=== PATIENT | female | born 1945 | race Caucasian/White ===

== ENCOUNTER 2021-04-29 18:08 | Inpatient (IN) | payer MEDICARE, OTHER ==
[2021-04-29] MEDS ORDERED: FUROSEMIDE 10 MG/ML 4 ML VIAL IV STA (19:02)
--- NOTE | 2021-04-29 19:06 | ED ---
General Adult HPI - General Chief complaint: Extremity Problem,Nontraumatic Stated complaint: Swollen legs Time Seen by Provider: 04/29/21 19:00 Source: patient, RN notes reviewed, old records reviewed Mode of arrival: EMS Limitations: no limitations - History of Present Illness Initial comments: 75-year-old female alert and oriented 4, presents to the emergency room with complaints of bilateral lower extremity swelling for the past month. She states that she does takes Lasix twice a day but has had increased swelling. She denies any difficulty breathing or chest pain. Oxygen saturations 93% on room air. She is a daily smoker. She states that she sees a clinic doctor in [place] for primary care. -: month(s) (1) Location: left, right, lower extremity Radiation: non-radiation Severity scale (1-10): 8 Quality: aching Consistency: constant Improves with: none Worsens with: none Associated Symptoms: denies other symptoms Treatments Prior to Arrival: none - Related Data Home Medications Medication Instructions Recorded Confirmed Carvedilol [Coreg] 12.5 mg PO BID 04/29/21 04/29/21 Furosemide [Lasix] 20 mg PO BID 04/29/21 04/29/21 Nitroglycerin Sl Tabs [Nitrostat] 0.4 mg SUBLINGUAL Q5M PRN 04/29/21 04/29/21 Sacubitril/Valsartan [Entresto 97 1 tab PO BID 04/29/21 04/29/21 mg-103 mg Tablet] Allergies Allergy/AdvReac Type Severity Reaction Status Date / Time Penicillins Allergy Unknown Verified 04/29/21 20:47 Review of Systems ROS Statement: Those systems with pertinent positive or pertinent negative responses have been documented in the HPI. ROS Other: All systems not noted in ROS Statement are negative. Past Medical History Past Medical History: Atrial Fibrillation, Coronary Artery Disease (CAD), Heart Failure, COPD, Myocardial Infarction ([place]) History of Any Multi-Drug Resistant Organisms: None Reported Past Surgical History: Section, Heart Catheterization With Stent Past Psychological History: No Psychological Hx Reported Smoking Status: Current every day smoker Past Alcohol Use History: None Reported Past Drug Use History: None Reported General Exam Limitations: no limitations General appearance: alert, in no apparent distress ENT exam: Present: normal exam, normal oropharynx, mucous membranes dry Neck exam: Present: normal inspection, full ROM. Absent: tenderness, meningismus, lymphadenopathy Respiratory exam: Present: wheezes (Expiratory bilaterally). Absent: rhonchi, s tridor, chest wall tenderness, accessory muscle use Cardiovascular Exam: Present: regular rate, normal heart sounds GI/Abdominal exam: Present: soft. Absent: distended, tenderness Extremities exam: Present: normal capillary refill, pedal edema Neurological exam: Present: alert, oriented X3 Psychiatric exam: Present: normal affect, normal mood Skin exam: Present: warm, dry, intact, normal color. Absent: cyanosis, diaphoretic, pallor Course Vital Signs 04/29/21 04/29/21 04/29/21 18:12 20:33 22:07 Temperature 98.8 F Pulse Rate 81 82 77 Respiratory 20 20 20 Rate Blood Pressure 114/66 125/77 122/68 O2 Sat by Pulse 93 L 95 97 Oximetry EKG Findings - EKG Results: EKG: sinus rhythm (Ventricular rate of 83, SD interval 0.180, QRS 0.160, QTC 0.465; right bundle-branch block, no old EKG to compare) Medical Decision Making - Medical Decision Making 75-year-old female presents to the emergency room with complaints of bilateral lower extremity swelling for the past month. She states that she does takes Lasix twice a day but has had increased swelling. She denies any difficulty breathing or chest pain. Chest x-ray shows findings consistent with interstitial pulmonary edema. There is no clinical suspicion for pneumonia. There is no evidence of leukocytosis. Coronavirus swab is negative. Troponin is negative at 0.012. Her pro-BNP is 14,800. She was given IV Lasix in the emergency room and she will be admitted to the hospital for CHF exacerbation. Patient is agreeable to this plan of care. Case was discussed with Dr. Quiroz. - Lab Data Result diagrams: 04/29/21 20:00 04/29/21 20:01 Lab Results 04/29/21 04/29/21 04/29/21 Range/Units 20:00 20:01 20:01 WBC 4.2 (3.8-10.6) k/uL RBC 4.40 (3.80-5.40) m/uL Hgb 12.9 (11.4-16.0) gm/dL Hct 41.6 (34.0-46.0) % MCV 94.5 (80.0-100.0) fL MCH 29.4 (25.0-35.0) pg MCHC 31.1 (31.0-37.0) g/dL RDW 15.9 H (11.5-15.5) % Plt Count 146 L (150-450) k/uL MPV 7.1 Neutrophils % 61 % Lymphocytes % 30 % Monocytes % 6 % Eosinophils % 1 % Basophils % 1 % Neutrophils # 2.6 (1.3-7.7) k/uL Lymphocytes # 1.2 (1.0-4.8) k/uL Monocytes # 0.3 (0-1.0) k/uL Eosinophils # 0.1 (0-0.7) k/uL Basophils # 0.0 (0-0.2) k/uL Hypochromasia Slight PT 12.2 H (9.0-12.0) sec INR 1.2 H (<1.2) APTT 25.0 (22.0-30.0) sec Sodium 133 L (137-145) mmol/L Potassium 4.5 (3.5-5.1) mmol/L Chloride 100 (98-107) mmol/L Carbon Dioxide 27 (22-30) mmol/L Anion Gap 6 mmol/L BUN 19 H (7-17) mg/dL Creatinine 0.65 (0.52-1.04) mg/dL Est GFR (CKD-EPI)AfAm >90 (>60 ml/min/1.73 sqM) Est GFR (CKD-EPI)NonAf 87 (>60 ml/min/1.73 sqM) Glucose 92 (74-99) mg/dL Calcium 8.7 (8.4-10.2) mg/dL Magnesium 2.1 (1.6-2.3) mg/dL Total Bilirubin 0.9 (0.2-1.3) mg/dL AST 32 (14-36) U/L ALT 19 (4-34) U/L Alkaline Phosphatase 51 (38-126) U/L Troponin I (0.000-0.034) ng/mL NT-Pro-B Natriuret Pep pg/mL Total Protein 6.5 (6.3-8.2) g/dL Albumin 3.4 L (3.5-5.0) g/dL 04/29/21 04/29/21 Range/Units 20:01 20:01 WBC (3.8-10.6) k/uL RBC (3.80-5.40) m/uL Hgb (11.4-16.0) gm/dL Hct (34.0-46.0) % MCV (80.0-100.0) fL MCH (25.0-35.0) pg MCHC (31.0-37.0) g/dL RDW (11.5-15.5) % Plt Count (150-450) k/uL MPV Neutrophils % % Lymphocytes % % Monocytes % % Eosinophils % % Basophils % % Neutrophils # (1.3-7.7) k/uL Lymphocytes # (1.0-4.8) k/uL Monocytes # (0-1.0) k/uL Eosinophils # (0-0.7) k/uL Basophils # (0-0.2) k/uL Hypochromasia PT (9.0-12.0) sec INR (<1.2) APTT (22.0-30.0) sec Sodium (137-145) mmol/L Potassium (3.5-5.1) mmol/L Chloride (98-107) mmol/L Carbon Dioxide (22-30) mmol/L Anion Gap mmol/L BUN (7-17) mg/dL Creatinine (0.52-1.04) mg/dL Est GFR (CKD-EPI)AfAm (>60 ml/min/1.73 sqM) Est GFR (CKD-EPI)NonAf (>60 ml/min/1.73 sqM) Glucose (74-99) mg/dL Calcium (8.4-10.2) mg/dL Magnesium (1.6-2.3) mg/dL Total Bilirubin (0.2-1.3) mg/dL AST (14-36) U/L ALT (4-34) U/L Alkaline Phosphatase (38-126) U/L Troponin I <0.012 (0.000-0.034) ng/mL NT-Pro-B Natriuret Pep 36935 pg/mL Total Protein (6.3-8.2) g/dL Albumin (3.5-5.0) g/dL Disposition Clinical Impression: CHF (congestive heart failure) Disposition: ADMITTED IP TO THIS HOSP Decision Date: 04/29/21 Decision Time: 21:26
--- NOTE | 2021-04-29 20:17 | XR ---
EXAMINATION: XR chest 2V DATE AND TIME: 04/29/2021 8:11 PM CLINICAL INDICATION: PHH; difficulty breathing TECHNIQUE: Departmental protocol COMPARISON: None FINDINGS: The lungs demonstrate marked silhouetting of the pulmonary vasculature bilaterally throughout the upp er and mid and lower lung zones. This is due to a fine reticular pattern of increased attenuation in addition to pulmonary venous engorgement. The pattern is consistent with advanced interstitial phase pulmonary edema. This presumptive diagnosis presumes there is no clinical suspicion for pneumonia. The pleural spaces are negative. The cardiac silhouette is markedly enlarged. The remainder of the mediastinal silhouette is unremarka ble. The skeletal structures and soft tissues are negative for acute findings. IMPRESSION: Radiographic findings consistent with marked interstitial phase cardiogenic pulmonary edema.
[2021-04-29 20:23] LABS: Basophils % (A) 1 %; Eosinophils # (A) 0.1 k/uL (0-0.7); Eosinophils % (A) 1 %; HCT 41.6 % (34.0-46.0); HGB 12.9 gm/dL (11.4-16.0); Hypochromasia Slight; Lymphocytes # (A) 1.2 k/uL (1.0-4.8); Lymphocytes % (A) 30 %; MCH 29.4 pg (25.0-35.0); MCHC 31.1 g/dL (31.0-37.0); MCV 94.5 fL (80.0-100.0); Mean Platelet Volume 7.1; Monocytes # (A) 0.3 k/uL (0-1.0); Monocytes % (A) 6 %; Neutrophils # (A) 2.6 k/uL (1.3-7.7); Neutrophils % (A) 61 %; Platelet Count 146 k/uL (150-450); RDW 15.9 % (11.5-15.5); WBC 4.2 k/uL (3.8-10.6)
[2021-04-29 20:36] LABS: ALT 19 U/L (4-34); AST 32 U/L (14-36); African American GFR (CKD) >90 (>60 ml/min/1.73 sqM); Albumin 3.4 g/dL (3.5-5.0); Alkaline Phosphatase 51 U/L (38-126); Anion Gap 6 mmol/L; Blood Urea Nitrogen 19 mg/dL (7-17); Calcium 8.7 mg/dL (8.4-10.2); Carbon Dioxide 27 mmol/L (22-30); Chloride 100 mmol/L (98-107); Glucose 92 mg/dL (74-99); Magnesium 2.1 mg/dL (1.6-2.3); Non-African American GFR(CKD) 87 (>60 ml/min/1.73 sqM); Sodium 133 mmol/L (137-145); Total Bilirubin 0.9 mg/dL (0.2-1.3); Total Protein 6.5 g/dL (6.3-8.2)
[2021-04-29 20:39] LABS: Potassium 4.5 mmol/L (3.5-5.1)
[2021-04-29 20:47] LABS: INR 1.2 (<1.2); Prothrombin Time 12.2 sec (9.0-12.0)
[2021-04-29] MEDS ORDERED: ACETAMINOPHEN TAB 325 MG TAB PO PRN (21:27)
[2021-04-29] MEDS ORDERED: NALOXONE 0.4 MG/ML 1 ML VIAL IV PRN (21:27)
[2021-04-29] MEDS ORDERED: IBUPROFEN 400 MG TAB PO PRN (21:27)
[2021-04-29] MEDS ORDERED: NITROGLYCERIN SL TABS 0.4 MG TAB SUBLINGUAL PRN (21:29)
--- NOTE | 2021-04-30 02:07 | P.HPIM ---
History of Present Illness H&P Date: 04/29/21 The patient is a 75-year-old female with an extensive PMH including COPD, CHF, coronary artery disease status post stenting, A. fib (not on anticoagulation, unknown reason) who presents to the emergency room with complaints of bilateral lower extremity swelling. The patient reports that she was admitted to [facility] in [place] last month for 1 week and was treated for cardiac issues but states that she continues to have lower extremity edema. The patient does not recall her home medications and states she takes whenever she is prescribed. She lives with her son. She reports bilateral lower extremity discomfort due to significant edema. Reports sleeping in a recliner over the past few days and somewhat decreased exercise tolerance. Denied fever, chills, cough, nausea, vomiting, abdominal pain, diarrhea. Laboratory evaluation was remarkable for sodium of 133, and platelet count 146. Chest x-ray was consistent with edema. EKG showing normal sinus rhythm at 83 bpm with right bundle branch block. Review of systems: Pertinent positives and negatives as discussed in HPI, a complete review of systems was performed and all other systems are negative. Physical examination: General: non toxic, no distress, appears at stated age, normal weight Derm: no unusual rashes/lesions no unusual ecchymoses, warm, dry Head: atraumatic, normocephalic, symmetric Eyes: EOMI, no lid lag, anicteric sclera, pupils equal round reactive to light ENT: Nose and ears atraumatic, no thrush, no pharyngeal erythema Neck: No thyromegaly, no cervical lymphadenopathy, trachea midline, supple Mouth: no lip lesion, mucus membranes moist Cardiovascular: S1S2 reg, no murmur, positive posterior tibial pulse bilateral, 3+ bilateral lower extremity pitting edema with chronic venous stasis changes, capillary refill less than 2 seconds Lungs: Mild bibasilar rales, no accessory muscle use Abdominal: soft, nontender to palpation, no guarding, no appreciable organomegaly, normal bowel sounds Ext: no gross muscle atrophy, muscle strength 5 out of 5 in all 4 extremities grossly, no contractures, Neuro: CN II-XI grossly intact, light touch intact all 4 extremities, finger to nose within normal limits, Psych: Alert, oriented, appropriate affect Assessment/plan Acute CHF exacerbation -Obtain echocardiogram -Continue with Lasix -Cardiac monitoring -Monitor electrolytes -Cardiac monitoring -Intake and output, daily weights Chronic conditions: A. fib, COPD, coronary artery disease -Unclear why the patient is not on anticoagulation -Continue with home medications -Obtain records from [facility] and consider starting anticoagulation if no contra indications noted DVT prophylaxis -Heparin subcu The patient is admitted with an anticipated less than 2 midnight stay for ev aluation of CHF CODE STATUS: Full Code Discussed with: Patient Anticipated discharge date: 2-[address]: Home Past Medical History Past Medical History: Atrial Fibrillation, Coronary Artery Disease (CAD), Heart Failure, COPD, Myocardial Infarction ([place]) Last Myocardial Infarction Date:: unknown date per pt. History of Any Multi-Drug Resistant Organisms: None Reported Past Surgical History: Section, Heart Catheterization With Stent Past Anesthesia/Blood Transfusion Reactions: No Reported Reaction Date of Last Stent Placement:: unknwn date per pt Past Psychological History: No Psychological Hx Reported Smoking Status: Current every day smoker Past Alcohol Use History: None Reported Additional Past Alcohol Use History / Comment(s): 62 years of smoking Past Drug Use History: None Reported Medications and Allergies Home Medications Medication Instructions Recorded Confirmed Type Carvedilol [Coreg] 12.5 mg PO BID 04/29/21 04/29/21 History Furosemide [Lasix] 20 mg PO BID 04/29/21 04/29/21 History Nitroglycerin Sl Tabs [Nitrostat] 0.4 mg SUBLINGUAL Q5M PRN 04/29/21 04/29/21 History Sacubitril/Valsartan [Entresto 97 1 tab PO BID 04/29/21 04/29/21 History mg-103 mg Tablet] Allergies Allergy/AdvReac Type Severity Reaction Status Date / Time Penicillins Allergy Unknown Verified 04/29/21 20:47 Physical Exam Vitals: Vital Signs Temp Pulse Pulse Resp BP BP Pulse Ox 04/29/21 23:17 85 04/29/21 22:40 97.5 F L 85 17 128/82 100 04/29/21 22:07 77 20 122/68 97 04/29/21 20:33 82 20 125/77 95 04/29/21 18:12 98.8 F 81 20 114/66 93 L Intake and Output 04/29/21 04/29/21 04/30/21 14:59 22:59 06:59 Other: # Voids 1 Weight 57.606 kg Results CBC & Chem 7: 04/29/21 20:00 04/29/21 20:01 Labs: Abnormal Lab Results - Last 24 Hours (Table) 04/29/21 04/29/21 04/29/21 Range/Units 20:00 20:01 20:01 RDW 15.9 H (11.5-15.5) % Plt Count 146 L (150-450) k/uL PT 12.2 H (9.0-12.0) sec INR 1.2 H (<1.2) Sodium 133 L (137-145) mmol/L BUN 19 H (7-17) mg/dL Albumin 3.4 L (3.5-5.0) g/dL Thrombosis Risk Factor Assmnt - Choose All That Apply Any of the Below Risk Factors Present?: Yes Each Factor Represents 1 point: Abnormal pulmonary function (COPD), Swollen legs (current) Other Risk Factors: Yes Each Risk Factor Represents 3 Points: Age 75 years or older Thrombosis Risk Factor Assessment Total Risk Factor Score: 5 Thrombosis Risk Factor Assessment Level: High Risk
[2021-04-30] MEDS: HEPARIN SODIUM,PORCINE/PF 5,000 UNIT/0.5 ML SYRINGE SQ SCH ×3 (07:29→23:28)
[2021-04-30] MEDS: carvediloL 12.5 MG TAB PO SCH ×2 (07:30→19:46)
[2021-04-30] MEDS: FUROSEMIDE 10 MG/ML 4 ML VIAL IV SCH ×2 (07:30→19:46)
[2021-04-30 07:42] LABS: African American GFR (CKD) 83 (>60 ml/min/1.73 sqM); Anion Gap 3 mmol/L; Blood Urea Nitrogen 18 mg/dL (7-17); Calcium 8.3 mg/dL (8.4-10.2); Carbon Dioxide 30 mmol/L (22-30); Chloride 103 mmol/L (98-107); Glucose 98 mg/dL (74-99); Magnesium 2.1 mg/dL (1.6-2.3); Non-African American GFR(CKD) 72 (>60 ml/min/1.73 sqM); Potassium 3.9 mmol/L (3.5-5.1); Sodium 136 mmol/L (137-145)
[2021-04-30] MEDS ORDERED: FUROSEMIDE 20 MG TAB PO SCH (09:00)
[2021-04-30 09:05] LABS: HCT 38.9 % (37.2-46.3); HGB 12.1 g/dL (12.0-15.0); MCH 28.7 pg (27.0-32.0); MCHC 31.1 g/dL (32.0-37.0); MCV 92.4 fL (80.0-97.0); Mean Platelet Volume 9.1 fL (9.5-12.2); Platelet Count 128 X 10*3/uL (140-440); RBC 4.21 X 10*6/uL (4.10-5.20); RDW 16.4 % (11.5-14.5); WBC 4.18 X 10*3/uL (4.50-10.00)
[2021-04-30] MEDS: SACUBITRIL/VALSARTAN 97 MG-103 MG TABLET PO SCH ×2 (09:35→19:46)
--- NOTE | 2021-04-30 09:39 | P.PN ---
Subjective Progress Note Date: 04/30/21 Physical examination: General: non toxic, no distress, appears at stated age, normal weight Derm: no unusual rashes/lesions no unusual ecchymoses, warm, dry Head: atraumatic, normocephalic, symmetric Eyes: EOMI, no lid lag, anicteric sclera, pupils equal round reactive to light ENT: Nose and ears atraumatic, no thrush, no pharyngeal erythema Neck: No thyromegaly, no cervical lymphadenopathy, trachea midline, supple Mouth: no lip lesion, mucus membranes moist Cardiovascular: S1S2 reg, no murmur, positive posterior tibial pulse bilateral, 3+ bilateral lower extremity pitting edema with chronic venous stasis changes, capillary refill less than 2 seconds Lungs: Mild bibasilar rales, no accessory muscle use Abdominal: soft, nontender to palpation, no guarding, no appreciable organomegaly, normal bowel sounds Ext: no gross muscle atrophy, muscle strength 5 out of 5 in all 4 extremities grossly, no contractures, Neuro: CN II-XI grossly intact, light touch intact all 4 extremities, finger to nose within normal limits, Psych: Alert, oriented, appropriate affect Patient is still short of breath still have swelling in the lower extremities no chest pain Assessment/plan Acute CHF exacerbation -Obtain echocardiogram -Continue with Lasix -Cardiac monitoring -Monitor electrolytes -Cardiac monitoring -Intake and output, daily weights Chronic conditions: A. fib, COPD, coronary artery disease -Unclear why the patient is not on anticoagulation -Continue with home medications -Obtain records from [facility] and consider starting anticoagulation if no contra indications noted CHF exacerbation continue patient on IV Lasix COPD extermination start the patient on IV steroids and monitor DVT prophylaxis Objective - Vital Signs Vital signs: Vital Signs Temp 99.5 F 04/30/21 07:00 Pulse 73 04/30/21 08:00 Resp 17 04/30/21 08:00 BP 126/79 04/30/21 07:00 Pulse Ox 96 04/30/21 07:00 Intake & Output 04/29/21 04/30/21 04/30/21 18:59 06:59 18:59 Intake Total 118 Output Total 100 300 Balance -100 -182 Weight 57.606 kg 60.1 kg Intake: Oral 118 Output: Urine 100 300 Other: Voiding Method Toilet # Voids 1 - Labs CBC & Chem 7: 04/30/21 06:58 04/30/21 06:58 Labs: Abnormal Lab Results - Last 24 Hours (Table) 04/29/21 04/29/21 04/29/21 Range/Units 20:00 20:01 20:01 WBC (4.50-10.00) X 10*3/uL MCHC (32.0-37.0) g/dL RDW 15.9 H (11.5-15.5) % Plt Count 146 L (150-450) k/uL MPV (9.5-12.2) fL PT 12.2 H (9.0-12.0) sec INR 1.2 H (<1.2) Sodium 133 L (137-145) mmol/L BUN 19 H (7-17) mg/dL Calcium (8.4-10.2) mg/dL Albumin 3.4 L (3.5-5.0) g/dL 04/30/21 04/30/21 Range/Units 06:58 06:58 WBC 4.18 L (4.50-10.00) X 10*3/uL MCHC 31.1 L (32.0-37.0) g/dL RDW 16.4 H (11.5-15.5) % Plt Count 128 L (150-450) k/uL MPV 9.1 L (9.5-12.2) fL PT (9.0-12.0) sec INR (<1.2) Sodium 136 L (137-145) mmol/L BUN 18 H (7-17) mg/dL Calcium 8.3 L (8.4-10.2) mg/dL Albumin (3.5-5.0) g/dL
--- NOTE | 2021-04-30 11:44 | ECHOF ---
Referral Reason:CHF MEASUREMENTS -------- HEIGHT: 152.4 cm WEIGHT: 57.6 kg BP: IVSd: 1.1 cm (0.6 - 1.1) LVIDd: 6.0 cm (3.9 - 5.3) LVPWd: 1.1 cm (0.6 - 1.1) EDV(Teich): 178 ml IVSs: 1.4 cm LVIDs: 4.0 cm LVPWs: 1.7 cm %IVS Thck: 29 % ESV(Teich): 69 ml EF(Teich): 61 % %FS: 34 % SV(Teich): 109 ml LA Diam: 4.7 cm (2.7 - 3.8) RVIDd: 4.1 cm (< 3.3) RA Diam: 4.7 cm LALs A4C: 5.7 cm LAAs A4C: 22.9 cm LAESV A-L A4C: 78 ml LAESV MOD A4C: 75 ml LALs A2C: 5.9 cm LAAs A2C: 25.4 cm LAESV A-L A2C: 93 ml LAESV MOD A2C: 88 ml LAESV(A-L): 87 ml LAESV Index (A-L): 56.43 ml/m Ao Diam: 2.5 cm (2.0 - 3.7) LA Diam: 6.1 cm (2.7 - 3.8) AV Cusp: 1.6 cm (1.5 - 2.6) EPSS: 2.0 cm MV E Dyllan: 0.93 m/s MV DecT: 243 ms MV Dec Meagher: 3.8 m/s MV A Dyllan: 0.80 m/s MV E/A Ratio: 1.17 MV PHT: 70 ms MV Vmax: 1.66 m/s MV Vmean: 0.73 m/s MV maxP.02 mmHg MV meanP.71 mmHg MV VTI: 32.2 cm TR Vmax: 3.54 m/s TR maxP.14 mmHg RAP: 15.00 mmHg RVSP: 65.14 mmHg MV EF SLOPE: 41.47 mm/s (70 - 150) MV EXCURSION: 13.54 mm (> 18.000) FINDINGS -------- Sinus rhythm. This was a technically good study. The left ventricular size is normal. Left ventricular wall thickness is normal. Overall left vent ricular systolic function is severely impaired with, an EF between 20 - 25 %. The right ventricle is severely enlarged. The right ventricular septal wall is flattened in diastol e and systole which is consistent with right ventricular volume and pressure overload. LA is severely dilated >40 ml/m2 The right atrial size is normal. There is mild aortic valve sclerosis. There is no evidence of aortic regurgitation. The mitral valve leaflets are mildly thickened. Mild mitral annular calcification present. Modera te mitral regurgitation is present. Severe tricuspid regurgitation present. There is moderate to severe pulmonary hypertension. The r ight ventricular systolic pressure, as measured by Doppler, is 65.14mmHg. Trace/mild (physiologic) pulmonic regurgitation. There is no pericardial effusion. CONCLUSIONS -------- 1. The left ventricular size is normal. 2. Left ventricular wall thickness is normal. 3. Overall left ventricular systolic function is severely impaired with, an EF between 20 - 25 %. 4. The right ventricle is severely enlarged. 5. The right ventricular septal wall is flattened in diastole and systole which is consistent with r ight ventricular volume and pressure overload. 6. LA is severely dilated >40 ml/m2 7. The right atrial size is normal. 8. There is mild aortic valve sclerosis. 9. The mitral valve leaflets are mildly thickened. 10. Mild mitral annular calcification present. 11. Moderate mitral regurgitation is present. 12. Severe tricuspid regurgitation present. 13. There is moderate to severe pulmonary hypertension. 14. The right ventricular systolic pressure, as measured by Doppler, is 65.14mmHg. 15. Trace/mild (physiologic) pulmonic regurgitation. 16. There is no pericardial effusion. OCCUPATIONAL THERAPY AIDE: Meliza Arias RDCS
[2021-04-30] MEDS: methylPREDNISolone SOD SUCCI 40 MG/ML 1 ML VIAL IV SCH ×3 (15:31→23:27)
[2021-05-01] MEDS: methylPREDNISolone SOD SUCCI 40 MG/ML 1 ML VIAL IV SCH ×3 (08:20→19:51)
[2021-05-01] MEDS: HEPARIN SODIUM,PORCINE/PF 5,000 UNIT/0.5 ML SYRINGE SQ SCH ×3 (08:23→19:50)
[2021-05-01] MEDS: FUROSEMIDE 10 MG/ML 4 ML VIAL IV SCH ×2 (08:23→19:50)
[2021-05-01] MEDS: carvediloL 12.5 MG TAB PO SCH ×2 (08:23→19:50)
[2021-05-01] MEDS: SACUBITRIL/VALSARTAN 97 MG-103 MG TABLET PO SCH ×2 (08:23→19:50)
--- NOTE | 2021-05-01 11:37 | P.PN ---
Subjective Progress Note Date: 05/01/21 Principal diagnosis: Patient feels okay still short of breath still have swelling in the lower extremities Physical examination: General: non toxic, no distress, appears at stated age, normal weight Derm: no unusual rashes/lesions no unusual ecchymoses, warm, dry Head: atraumatic, normocephalic, symmetric Eyes: EOMI, no lid lag, anicteric sclera, pupils equal round reactive to light ENT: Nose and ears atraumatic, no thrush, no pharyngeal erythema Neck: No thyromegaly, no cervical lymphadenopathy, trachea midline, supple Mouth: no lip lesion, mucus membranes moist Cardiovascular: S1S2 reg, no murmur, positive posterior tibial pulse bilateral, 3+ bilateral lower extremity pitting edema with chronic venous stasis changes, capillary refill less than 2 seconds Lungs: Mild bibasilar rales, no accessory muscle use Abdominal: soft, nontender to palpation, no guarding, no appreciable organomegaly, normal bowel sounds Ext: no gross muscle atrophy, muscle strength 5 out of 5 in all 4 extremities grossly, no contractures, Neuro: CN II-XI grossly intact, light touch intact all 4 extremities, finger to nose within normal limits, Psych: Alert, oriented, appropriate affect Patient is still short of breath still have swelling in the lower extremities no chest pain Assessment/plan Acute CHF exacerbation -Obtain echocardiogram -Continue with Lasix -Cardiac monitoring -Monitor electrolytes -Cardiac monitoring -Intake and output, daily weights Chronic conditions: A. fib, COPD, coronary artery disease -Unclear why the patient is not on anticoagulation -Continue with home medications -Obtain records from [facility] and consider starting anticoagulation if no contra indications noted CHF exacerbation continue patient on IV Lasix COPD extermination start the patient on IV steroids and monitor Overall patient is improving slowly DVT prophylaxis Objective - Vital Signs Vital signs: Vital Signs Temp 97.6 F 05/01/21 07:00 Pulse 80 05/01/21 07:00 Resp 18 05/01/21 07:00 BP 132/73 05/01/21 07:00 Pulse Ox 98 05/01/21 07:00 Intake & Output 04/30/21 05/01/21 05/01/21 18:59 06:59 18:59 Intake Total 418 200 120 Output Total 1850 1400 Balance -1432 -1200 120 Weight 59.4 kg Intake: Oral 418 200 120 Output: Urine 1850 1400 Other: Voiding Method Toilet Toilet Toilet # Voids 2 0 # Bowel Movements 1 - Labs CBC & Chem 7: 04/30/21 06:58 04/30/21 06:58
[2021-05-01 12:45] LABS: Basophils # (A) 0.03 X 10*3/uL (0.00-0.10); Basophils % (A) 0.8 %; Eosinophils # (A) 0.08 X 10*3/uL (0.04-0.35); Eosinophils % (A) 2.1 %; HCT 39.1 % (37.2-46.3); HGB 11.8 g/dL (12.0-15.0); Lymphocytes # (A) 1.27 X 10*3/uL (0.90-5.00); MCH 28.2 pg (27.0-32.0); MCHC 30.2 g/dL (32.0-37.0); MCV 93.5 fL (80.0-97.0); Mean Platelet Volume 9.4 fL (9.5-12.2); Monocytes # (A) 0.35 X 10*3/uL (0.20-1.00); Monocytes % (A) 9.4 %; Neutrophils % (A) 53.4 %; Platelet Count 137 X 10*3/uL (140-440); RBC 4.18 X 10*6/uL (4.10-5.20); RDW 16.5 % (11.5-14.5); WBC 3.74 X 10*3/uL (4.50-10.00)
[2021-05-01 13:05] LABS: African American GFR (CKD) 83.1 (60.0-200.0); Albumin 3.7 g/dL (3.8-4.9); Albumin/Globulin Ratio 1.56 (1.60-3.17); Anion Gap 11.3 mmol/L (10.00-18.00); BUN/Creat Ratio 22.9 Ratio (12.00-20.00); Blood Urea Nitrogen 18.3 mg/dL (9.0-27.0); Calcium 8.8 mg/dL (8.7-10.3); Carbon Dioxide 28.1 mmol/L (20.0-27.5); Globulin 2.4 g/dL (1.6-3.3); Non-African American GFR(CKD) 71.7 (60.0-200.0); Potassium 4.2 mmol/L (3.5-5.5); Total Bilirubin 0.4 mg/dL (0.30-1.20)
[2021-05-02] MEDS: methylPREDNISolone SOD SUCCI 40 MG/ML 1 ML VIAL IV SCH ×2 (07:13→15:05)
[2021-05-02] MEDS: HEPARIN SODIUM,PORCINE/PF 5,000 UNIT/0.5 ML SYRINGE SQ SCH ×2 (07:13→15:05)
[2021-05-02] MEDS: carvediloL 12.5 MG TAB PO SCH ×2 (07:15→21:08)
[2021-05-02] MEDS: SACUBITRIL/VALSARTAN 97 MG-103 MG TABLET PO SCH ×2 (07:15→21:20)
[2021-05-02] MEDS: FUROSEMIDE 10 MG/ML 4 ML VIAL IV SCH ×2 (07:15→21:08)
[2021-05-02 11:29] LABS: Albumin 3.9 g/dL (3.8-4.9); Albumin/Globulin Ratio 1.56 (1.60-3.17); Anion Gap 11.4 mmol/L (10.00-18.00); BUN/Creat Ratio 21.56 Ratio (12.00-20.00); Blood Urea Nitrogen 19.4 mg/dL (9.0-27.0); Calcium 8.9 mg/dL (8.7-10.3); Carbon Dioxide 28.6 mmol/L (20.0-27.5); Globulin 2.5 g/dL (1.6-3.3); Non-African American GFR(CKD) 62.1 (60.0-200.0); Potassium 4.7 mmol/L (3.5-5.5); Total Bilirubin 0.4 mg/dL (0.30-1.20); Total Protein 6.4 g/dL (6.2-8.2)
--- NOTE | 2021-05-02 11:34 | P.PN ---
Subjective Progress Note Date: 05/02/21 Principal diagnosis: Patient feels okay still have shortness of breath Patient feels okay still short of breath still have swelling in the lower extremities Physical examination: General: non toxic, no distress, appears at stated age, normal weight Derm: no unusual rashes/lesions no unusual ecchymoses, warm, dry Head: atraumatic, normocephalic, symmetric Eyes: EOMI, no lid lag, anicteric sclera, pupils equal round reactive to light ENT: Nose and ears atraumatic, no thrush, no pharyngeal erythema Neck: No thyromegaly, no cervical lymphadenopathy, trachea midline, supple Mouth: no lip lesion, mucus membranes moist Cardiovascular: S1S2 reg, no murmur, positive posterior tibial pulse bilateral, 3+ bilateral lower extremity pitting edema with chronic venous stasis changes, c apillary refill less than 2 seconds Lungs: Mild bibasilar rales, no accessory muscle use Abdominal: soft, nontender to palpation, no guarding, no appreciable organomegaly, normal bowel sounds Ext: no gross muscle atrophy, muscle strength 5 out of 5 in all 4 extremities grossly, no contractures, Neuro: CN II-XI grossly intact, light touch intact all 4 extremities, finger to nose within normal limits, Psych: Alert, oriented, appropriate affect Patient is still short of breath still have swelling in the lower extremities no chest pain Assessment/plan Acute CHF exacerbation -Obtain echocardiogram -Continue with Lasix -Cardiac monitoring -Monitor electrolytes -Cardiac monitoring -Intake and output, daily weights Chronic conditions: A. fib, COPD, coronary artery disease -Unclear why the patient is not on anticoagulation -Continue with home medications -Obtain records from [facility] and consider starting anticoagulation if no contra indications noted CHF exacerbation continue patient on IV Lasix COPD extermination start the patient on IV steroids and monitor Overall patient is improving slowly DVT prophylaxis Overall improving but still have swelling in the lower extremities will continue IV Lasix hopefully discharge in a day or 2 Objective - Vital Signs Vital signs: Vital Signs Temp 98 F 05/02/21 07:00 Pulse 67 05/02/21 07:00 Resp 18 05/02/21 07:00 BP 111/59 05/02/21 07:00 Pulse Ox 98 05/02/21 07:00 Intake & Output 05/01/21 05/02/21 05/02/21 18:59 06:59 18:59 Intake Total 360 240 Balance 360 240 Weight 58.2 kg Intake: Oral 360 240 Other: Voiding Method Toilet Toilet Toilet # Voids 2 4 1 # Bowel Movements 1 - Labs CBC & Chem 7: 05/01/21 08:19 05/02/21 07:37 Labs: Abnormal Lab Results - Last 24 Hours (Table) 05/01/21 05/01/21 05/02/21 Range/Units 08:19 08:19 07:37 WBC 3.74 L (4.50-10.00) X 10*3/uL Hgb 11.8 L (12.0-15.0) g/dL MCHC 30.2 L (32.0-37.0) g/dL RDW 16.5 H (11.5-14.5) % Plt Count 137 L (140-440) X 10*3/uL MPV 9.4 L (9.5-12.2) fL Chloride 95 L (96-109) mmol/L Carbon Dioxide 28.1 H 28.6 H (20.0-27.5) mmol/L BUN/Creatinine Ratio 22.90 H 21.56 H (12.00-20.00) Ratio Glucose 133 H (70-110) mg/dL Total Protein 6.0 L (6.2-8.2) g/dL Albumin 3.7 L (3.8-4.9) g/dL Albumin/Globulin Ratio 1.56 L 1.56 L (1.60-3.17) g/dL
[2021-05-02 11:45] LABS: Basophils # (A) 0.02 X 10*3/uL (0.00-0.10); Basophils % (A) 0.5 %; Eosinophils # (A) 0.09 X 10*3/uL (0.04-0.35); Eosinophils % (A) 2.2 %; HGB 12.2 g/dL (12.0-15.0); Lymphocytes % (A) 34.4 %; MCH 28.6 pg (27.0-32.0); MCHC 30.5 g/dL (32.0-37.0); MCV 93.9 fL (80.0-97.0); Mean Platelet Volume 9.4 fL (9.5-12.2); Monocytes # (A) 0.42 X 10*3/uL (0.20-1.00); Monocytes % (A) 10.3 %; Neutrophils # (A) 2.13 X 10*3/uL (1.80-7.70); Neutrophils % (A) 52.4 %; Platelet Count 142 X 10*3/uL (140-440); RBC 4.26 X 10*6/uL (4.10-5.20); RDW 16.2 % (11.5-14.5); WBC 4.07 X 10*3/uL (4.50-10.00)
[2021-05-03] MEDS: HEPARIN SODIUM,PORCINE/PF 5,000 UNIT/0.5 ML SYRINGE SQ SCH ×3 (00:29→16:13)
[2021-05-03] MEDS: methylPREDNISolone SOD SUCCI 40 MG/ML 1 ML VIAL IV SCH ×3 (00:29→08:53)
[2021-05-03] MEDS: FUROSEMIDE 10 MG/ML 4 ML VIAL IV SCH ×2 (08:53→20:20)
[2021-05-03] MEDS: SACUBITRIL/VALSARTAN 97 MG-103 MG TABLET PO SCH ×2 (08:53→20:20)
[2021-05-03] MEDS: carvediloL 12.5 MG TAB PO SCH ×2 (08:53→20:20)
[2021-05-03 10:15] LABS: Basophils # (A) 0.02 X 10*3/uL (0.00-0.10); Basophils % (A) 0.5 %; Eosinophils # (A) 0.09 X 10*3/uL (0.04-0.35); Eosinophils % (A) 2.1 %; HCT 40.7 % (37.2-46.3); HGB 12.4 g/dL (12.0-15.0); Lymphocytes # (A) 1.28 X 10*3/uL (0.90-5.00); Lymphocytes % (A) 29.8 %; MCH 28.7 pg (27.0-32.0); MCHC 30.5 g/dL (32.0-37.0); MCV 94.2 fL (80.0-97.0); Mean Platelet Volume 9.3 fL (9.5-12.2); Monocytes # (A) 0.35 X 10*3/uL (0.20-1.00); Monocytes % (A) 8.2 %; Neutrophils # (A) 2.54 X 10*3/uL (1.80-7.70); Neutrophils % (A) 59.2 %; Platelet Count 156 X 10*3/uL (140-440); RBC 4.32 X 10*6/uL (4.10-5.20); RDW 16.2 % (11.5-14.5); WBC 4.29 X 10*3/uL (4.50-10.00)
[2021-05-03 10:28] LABS: Albumin 3.9 g/dL (3.8-4.9); Albumin/Globulin Ratio 1.63 (1.60-3.17); Anion Gap 10.9 mmol/L (10.00-18.00); BUN/Creat Ratio 26.56 Ratio (12.00-20.00); Blood Urea Nitrogen 23.9 mg/dL (9.0-27.0); Calcium 8.9 mg/dL (8.7-10.3); Carbon Dioxide 28.1 mmol/L (20.0-27.5); Globulin 2.4 g/dL (1.6-3.3); Non-African American GFR(CKD) 62.1 (60.0-200.0); Potassium 4.8 mmol/L (3.5-5.5); Total Bilirubin 0.5 mg/dL (0.30-1.20); Total Protein 6.3 g/dL (6.2-8.2)
--- NOTE | 2021-05-03 15:00 | P.PN ---
<Clyde Vasquez - Last Filed: 05/03/21 14:35> Subjective Progress Note Date: 05/03/21 Hospital course: Patient is a very pleasant 75-year-old female with an extensive past medical h istory including CAD status post stenting, hypertension, chronic heart failure, atrial fibrillation not on anticoagulation, and COPD. She presented to the hospital on 04/29/21 with a chief complaint of bilateral lower extremity edema. Troponin was normal findings at less than 0.012 and proBNP was elevated at 14,800. EKG with moderate interference, however showing a sinus rhythm with a right bundle branch block. Echocardiogram revealing Patient was also noted to have pancytopenia with WBC count of 3.74, hemoglobin 11.8, and platelet count of 137 with no previous labs available for comparison. Physical exam: Patient seen and fully evaluated at the bedside. She continues to have bilateral lower extremity edema 2+ pitting. Reviewed echocardiogram, patient is a poor historian and unable to provide detailed history if this is chronic or acute. Discussed with unit assembler and RN, we will obtain records from [facility]. Cardiology consulted. Patient to continue Lasix 40 mg IVP every 12 hours at this time and has been started on daily aspirin, atorvastatin, and low-dose lisinopril and Aldactone in addition to her daily Coreg. Vital signs reviewed and stable. General: Nontoxic, no distress and appears stated age. Derm: Skin warm and dry, normal coloration for ethnicity. Head: Atraumatic, normocephalic and symmetric. Eyes: EOMs intact, no lid lag, and anicteric sclera Mouth: no lip lesions, mucus membranes moist Cardiovascular: regular rate and rhythm with normal S1S2, systolic murmur, positive posterior tibial pulses bilaterally, and cap refill < 2 seconds. Lungs: Respirations even, regular, and unlabored on room air. Lungs diminished with no rhonchi, no rales, no wheezing, and no accessory muscle usage. Abdominal: soft, nontender to palpation, no guarding, no appreciable organomegaly Ext: ROM intact. No gross muscle atrophy, 2+ pitting edema bilateral lower extremities, no contractures Neuro: Speech clear, face symmetrical and CN II-XII grossly intact with no noted focal neuro deficits Psych: Alert and oriented to person, place, time, and situation. Appropriate and pleasant affect. Assessment and Plan of Care: Acute on chronic systolic CHF exacerbation with severely impaired EF of 20-25% Severe tricuspid regurgitation Severe pulmonary hypertension History of CAD status post stenting Hypertension -Echocardiogram revealing a severely impaired EF of 20-25%, severely enlarged right ventricle with reports of right ventricular volume and pressure overload, severely dilated left atrium, severe tricuspid regurgitation, and moderate to severe pulmonary hypertension. -Continue with Lasix 40 mg every 12 hours -Cardiac monitoring -Monitor electrolytes -Cardiac monitoring -Close monitoring of Intake and output, daily weights -Consult to cardiology for acute systolic heart failure with severely impaired EF of 20-25% -Obtain records from [facility] -Patient started on daily aspirin, atorvastatin, lisinopril, and Aldactone in addition to her Coreg. Atrial fibrillation -Unclear why the patient is not on anticoagulation, patient is a poor historian -Obtain records from [facility] and consider starting anticoagulation if no contraindications noted COPD Continue Entresto CODE STATUS: Full code DVT prophylaxis: Heparin Discussed with: Patient and RN Anticipated discharge date: Clinical course to determine Anticipated discharge place: Home A total of 40 minutes was spent on the care of this complex patient more than 50% of the time was spent in counseling and care coordination. Objective - Vital Signs Vital signs: Vital Signs Temp 97.5 F L 05/03/21 07:00 Pulse 70 05/03/21 07:00 Resp 18 05/03/21 07:00 BP 117/67 05/03/21 07:00 Pulse Ox 95 05/03/21 07:00 Intake & Output 05/02/21 05/03/21 05/03/21 18:59 06:59 18:59 Intake Total 600 900 240 Balance 600 900 240 Weight 61 kg Intake: Oral 600 900 240 Other: Voiding Method Toilet Toilet # Voids 3 5 1 # Bowel Movements 1 - Labs CBC & Chem 7: 05/03/21 07:38 05/03/21 07:38 Labs: Abnormal Lab Results - Last 24 Hours (Table) 05/02/21 05/02/21 Range/Units 07:37 07:37 WBC 4.07 L (4.50-10.00) X 10*3/uL MCHC 30.5 L (32.0-37.0) g/dL RDW 16.2 H (11.5-14.5) % MPV 9.4 L (9.5-12.2) fL Chloride 95 L (96-109) mmol/L Carbon Dioxide 28.6 H (20.0-27.5) mmol/L BUN/Creatinine Ratio 21.56 H (12.00-20.00) Ratio Albumin/Globulin Ratio 1.56 L (1.60-3.17) g/dL <Anayeli,Erica Stephane - Last Filed: 05/03/21 18:21> Subjective Clyde Vasquez FLAME BURNER rendered care for this patient independently, reviewed the findings and plan as documented in the note above. I did not physically speak with or examine the patient on this date. Patients entresto is for her Systolic CHF and not COPD. Objective - Vital Signs Vital signs: Vital Signs Temp 97.9 F 05/03/21 13:00 Pulse 74 05/03/21 13:00 Resp 18 05/03/21 13:00 BP 119/65 05/03/21 13:00 Pulse Ox 96 05/03/21 13:00 Intake & Output 05/02/21 05/03/21 05/03/21 18:59 06:59 18:59 Intake Total 600 900 600 Balance 600 900 600 Weight 61 kg Intake: Oral 600 900 600 Other: Voiding Method Toilet Toilet # Voids 3 5 1 # Bowel Movements 1 - Labs CBC & Chem 7: 05/03/21 07:38 05/03/21 07:38 Labs: Abnormal Lab Results - Last 24 Hours (Table) 05/03/21 05/03/21 Range/Units 07:38 07:38 WBC 4.29 L (4.50-10.00) X 10*3/uL MCHC 30.5 L (32.0-37.0) g/dL RDW 16.2 H (11.5-14.5) % MPV 9.3 L (9.5-12.2) fL Sodium 133 L (135-145) mmol/L Chloride 94 L (96-109) mmol/L Carbon Dioxide 28.1 H (20.0-27.5) mmol/L BUN/Creatinine Ratio 26.56 H (12.00-20.00) Ratio Glucose 111 H (70-110) mg/dL
[2021-05-03] MEDS ORDERED: IPRATROPIUM-ALBUTEROL 3 ML NEB INHALATION PRN (17:18)
--- NOTE | 2021-05-03 17:34 | P.CRDCN ---
History of Present Illness History of present illness: 75-year-old lady with history of cardiomyopathy with congestive heart failure who was visiting [place] developed worsening leg swelling and shortness of breath and came to hospital for admission. Her symptoms have been coming on over the last several days moderate to severe intensity. She has moderate bilateral leg edema and moderate exertional shortness of breath with very limited activity. She does not have chest pain. But complains of PND and orthopnea. On her initial presentation she was found to be in congestive heart failure and had been treated with intravenous diuretics with some improvement in his symptoms. An echocardiogram done on this hospital which I reviewed shows severe LV systolic dysfunction enlarged right ventricle tricuspid regurgitation and moderate to severe pulmonary hypertension. I'm awaiting records from her primary job lithographer. In EKG shows sinus rhythm with right bundle branch block. Her clinical presentation is consistent with acute exacerbation of chronic systolic heart failure and we should treat her with intravenous diuretics beta b lockers and rest of the medications that she is currently on supplementing the electrolytes as needed Patient has history of coronary artery disease and apparently had angioplasty in the past. She also has COPD. It is unclear if there is a history of atrial fibrillation up not. Constitutional: Denies chills. Denies fever. Eyes: Denies blurred vision. Denies pain. Ears, nose, mouth and throat: Denies headache. Denies sore throat. Cardiovascular: Denies chest pain. shortness of breath. Significant for leg edema Respiratory: Denies cough. Significant for shortness of breath Gastrointestinal: Denies abdominal pain. Denies diarrhea. Denies nausea. Denies vomiting. Musculoskeletal: Denies myalgias. Integumentary: Denies pruritus. Denies rash. Neurological: Denies numbness. Denies weakness. Psychiatric: Denies anxiety. Denies depression. Endocrine: Denies fatigue. Denies weight change. Genitourinary: Denies burning, hematuria, frequency of urination. Hematological: No anemia or excess bleeding. General: The patient is awake and alert, in no distress, and does not appear acutely ill. Skin: Skin is warm and dry and no rashes or lesions are noted. Eye: Pupils are equal, round and reactive to light, extra-ocular movements are intact; there is normal conjunctiva bilaterally. Ears, nose, mouth and throat: There are moist mucous membranes and no oral lesions. Neck: The neck is supple, there is no tenderness or JVD. Cardiovascular: There is a regular rate and rhythm. No rub or gallop is appreciated. Systolic murmur at the left lower sternal border and at the apex Respiratory: Bilateral moderate rhonchi al. Gastrointestinal: Soft, non-distended, non-tender abdomen without masses or organomegaly noted. There is no rebound or guarding present. Bowel sounds are unremarkable. Back: There is no tenderness to palpation in the midline. There is no obvious deformity. Musculoskeletal: Normal ROM, no tenderness, There is no pedal edema. There is no calf tenderness or swelling. Extremities: Moderate bilateral pitting edema Vascular: Femoral pulse is normal. Posterior tibial pulses are normal .Dorsalis pedis is palpable. Neurological: CN II-XII intact. There are no obvious motor or sensory deficits. Speech is normal. Psychiatric: Cooperative, appropriate mood & affect, normal judgment. Assessment and plan Acute exacerbation of chronic systolic heart failure Cardiomyopathy with severe LV dysfunction Coronary artery disease status post prior angioplasty COPD exacerbation I will start the patient and nebulizers Continue the patient and IV diuretics Increase the dose of intravenous diuretics Continue beta pranav Past Medical History Past Medical History: Atrial Fibrillation, Coronary Artery Disease (CAD), Heart Failure, COPD, Myocardial Infarction ([place]) Last Myocardial Infarction Date:: unknown date per pt. History of Any Multi-Drug Resistant Organisms: None Reported Past Surgical History: Section, Heart Catheterization With Stent Past Anesthesia/Blood Transfusion Reactions: No Reported Reaction Date of Last Stent Placement:: unknwn date per pt Past Psychological History: No Psychological Hx Reported Smoking Status: Current every day smoker Past Alcohol Use History: None Reported Additional Past Alcohol Use History / Comment(s): 62 years of smoking Past Drug Use History: None Reported Medications and Allergies Home Medications Medication Instructions Recorded Confirmed Type Carvedilol [Coreg] 12.5 mg PO BID 04/29/21 04/29/21 History Furosemide [Lasix] 20 mg PO BID 04/29/21 04/29/21 History Nitroglycerin Sl Tabs [Nitrostat] 0.4 mg SUBLINGUAL Q5M PRN 04/29/21 04/29/21 Hi story Sacubitril/Valsartan [Entresto 97 1 tab PO BID 04/29/21 04/29/21 History mg-103 mg Tablet] Allergies Allergy/AdvReac Type Severity Reaction Status Date / Time Penicillins Allergy Unknown Verified 04/29/21 20:47 Physical Exam Vitals: Vital Signs Temp Pulse Resp BP Pulse Ox 05/03/21 13:00 97.9 F 74 18 119/65 96 05/03/21 07:00 97.5 F L 70 18 117/67 95 05/03/21 00:11 97.8 F 72 18 109/58 94 L 05/02/21 20:05 98.1 F 77 17 115/63 96 05/02/21 20:00 79 18 Intake and Output 05/03/21 05/03/21 05/03/21 06:59 14:59 22:59 Intake Total 900 360 Balance 900 360 Intake: Oral 900 360 Other: # Voids 5 0 0 Weight 61 kg Results 05/03/21 07:38 05/03/21 07:38 Cardiac Enzymes 05/03/21 Range/Units 07:38 AST 18 (13-35) U/L CBC 05/03/21 Range/Units 07:38 WBC 4.29 L (4.50-10.00) X 10*3/uL RBC 4.32 (4.10-5.20) X 10*6/uL Hgb 12.4 (12.0-15.0) g/dL Hct 40.7 (37.2-46.3) % Plt Count 156 (140-440) X 10*3/uL Comprehensive Metabolic Panel 05/03/21 Range/Units 07:38 Sodium 133 L (135-145) mmol/L Potassium 4.8 (3.5-5.5) mmol/L Chloride 94 L (96-109) mmol/L Carbon Dioxide 28.1 H (20.0-27.5) mmol/L BUN 23.9 (9.0-27.0) mg/dL Creatinine 0.9 (0.6-1.5) mg/dL Glucose 111 H (70-110) mg/dL Calcium 8.9 (8.7-10.3) mg/dL AST 18 (13-35) U/L ALT 19 (8-44) U/L Alkaline Phosphatase 69 (41-126) U/L Total Protein 6.3 (6.2-8.2) g/dL Albumin 3.9 (3.8-4.9) g/dL Current Medications Generic Name Dose Route Start Last Admin Trade Name Freq PRN Reason Stop Dose Admin Acetaminophen 650 mg 04/29/21 21:27 Acetaminophen Tab 325 Mg Tab PO Q6HR PRN Mild Pain or Fever > 100.5 Albuterol/Ipratropium 3 ml 05/03/21 17:18 Ipratropium-Albuterol 3 Ml Neb INHALATION RT-Q4H PRN Wheezing Aspirin 81 mg 05/04/21 09:00 Aspirin 81 Mg PO DAILY JUANA Atorvastatin Calcium 40 mg 05/03/21 21:00 Atorvastatin 40 Mg Tab PO HS JUANA Carvedilol 12.5 mg 04/30/21 09:00 05/03/21 08:53 Carvedilol 12.5 Mg Tab PO 12.5 mg BID JUANA Administration Furosemide 40 mg 04/30/21 09:00 05/03/21 08:53 Furosemide 10 Mg/Ml 4 Ml Vial IV 40 mg Q12HR JUANA Administration Heparin Sodium (Porcine) 5,000 unit 04/30/21 08:00 05/03/21 16:13 Heparin Sodium,Porcine/Pf 5,000 Unit/0.5 Ml Syringe SQ 5,000 unit Q8HR JUANA Administration Ibuprofen 400 mg 04/29/21 21:27 Ibuprofen 400 Mg Tab PO Q6HR PRN Mild Pain or Fever > 100.5 Naloxone HCl 0.2 mg 04/29/21 21:27 Naloxone 0.4 Mg/Ml 1 Ml Vial IV Q2M PRN Opioid Reversal Nitroglycerin 0.4 mg 04/29/21 21:29 Nitroglycerin Sl Tabs 0.4 Mg Tab SUBLINGUAL Q5M PRN Chest Pain Sacubitril/Valsartan 1 each 04/30/21 09:00 05/03/21 08:53 Sacubitril/Valsartan 97 Mg-103 Mg Tablet PO 1 each BID JUANA Administration Spironolactone 25 mg 05/04/21 09:00 Spironolactone 25 Mg Tab PO DAILY [facility] Intake and Output 05/03/21 05/03/21 05/03/21 06:59 14:59 22:59 Intake Total 900 360 Balance 900 360 Intake: Oral 900 360 Other: # Voids 5 0 0 Weight 61 kg 05/03/21 07:38 05/03/21 07:38
[2021-05-03] MEDS ORDERED: IPRATROPIUM-ALBUTEROL 3 ML NEB INHALATION SCH (20:00)
[2021-05-03] MEDS: ATORVASTATIN 40 MG TAB PO SCH ×2 (20:20→20:23)
[2021-05-04] MEDS: HEPARIN SODIUM,PORCINE/PF 5,000 UNIT/0.5 ML SYRINGE SQ SCH ×2 (00:24→08:48)
[2021-05-04 07:06] VITALS: BP 102/54; PULSE 67; RESP 20; TEMP 97.5
[2021-05-04 08:28] LABS: African American GFR (CKD) >90 (>60 ml/min/1.73 sqM); Anion Gap 2 mmol/L; Blood Urea Nitrogen 25 mg/dL (7-17); Calcium 8.5 mg/dL (8.4-10.2); Carbon Dioxide 32 mmol/L (22-30); Chloride 101 mmol/L (98-107); Glucose 97 mg/dL (74-99); Magnesium 2.2 mg/dL (1.6-2.3); Non-African American GFR(CKD) 80 (>60 ml/min/1.73 sqM); Potassium 4.2 mmol/L (3.5-5.1); Sodium 135 mmol/L (137-145)
[2021-05-04] MEDS: SACUBITRIL/VALSARTAN 97 MG-103 MG TABLET PO SCH (08:48)
[2021-05-04] MEDS: carvediloL 12.5 MG TAB PO SCH (08:49)
[2021-05-04] MEDS ORDERED: ASPIRIN 81 MG PO SCH (09:00)
[2021-05-04] MEDS ORDERED: SPIRONOLACTONE 25 MG TAB PO SCH (09:00)
[2021-05-04] MEDS ORDERED: FUROSEMIDE 40 MG TAB PO SCH (09:00)
--- NOTE | 2021-05-04 10:12 | P.CRDCN ---
History of Present Illness History of present illness: This is a 75-year-old lady with history of cardiomyopathy with congestive heart failure, coronary artery disease status post prior angioplasty, chronic nicotine dependence, COPD. She follows with a graphic art designer in [place]. We are consulted for congestive heart failure. Patient presented to the hospital on 04/29/2021 with complaints of worsening leg swelling and shortness of breath. On her initial presentation she was found to be in congestive heart failure and had been treated with intravenous diuretics with improvement in her symptoms. An echocardiogram completed which revealed severe LV systolic dysfunction EF 20-25% enlarged right ventricle tricuspid regurgitation and moderate to severe pulmonary hypertension. She states at home she did have some difficulty with taking her medications. Patient is a poor historian, unclear if she has a history of atrial fibrillation. Patient seen and examined at bedside, no acute distress. Her shortness of breath and lower extremity edema has significantly improved. Blood pressure 102/57, heart rate 67, afebrile, saturations 95% on room air. She's currently maintained on aspirin 81 mg daily, atorvastatin 40 mg nightly, carvedilol 12.5 mg twice a day, IV Lasix 40 mg twice a day, Entresto 97 mg103 mg twice a day, spironolactone 25 mg daily. GENERAL: In no acute distress. NECK: Supple without JVD or thyromegaly. LUNGS: Breath sounds clear to auscultation bilaterally. Respiration equal and unlabored. No wheezes, rales or rhonchi. HEART: Regular rate and rhythm Systolic ejection murmur at apex. No rubs or gallops. S1 and S2 heard. EXTREMITIES: Normal range of motion, trace bilateral lower extremity edema. No clubbing or cyanosis. Peripheral pulses intact. ASSESSMENT Acute on chronic heart failure with reduced ejection fraction Coronary artery disease with prior angioplasty Chronic nicotine dependence History of COPD PLAN We will transition to PO Lasix 40mg BID Continue aspirin, statin, Entresto, carvedilol and spironolactone. From a cardiology perspective, patient is stable to be discharged home Recommend close follow up with her Cardiology in [place] in 1 week for further management. Nurse Practitioner note has been reviewed, I agree with a documented findings and plan of care. Patient was seen and examined. Past Medical History Past Medical History: Atrial Fibrillation, Coronary Artery Disease (CAD), Heart Failure, COPD, Myocardial Infarction ([place]) Last Myocardial Infarction Date:: unknown date per pt. History of Any Multi-Drug Resistant Organisms: None Reported Past Surgical History: Section, Heart Catheterization With Stent Past Anesthesia/Blood Transfusion Reactions: No Reported Reaction Date of Last Stent Placement:: unknwn date per pt Past Psychological History: No Psychological Hx Reported Smoking Status: Current every day smoker Past Alcohol Use History: None Reported Additional Past Alcohol Use History / Comment(s): 62 years of smoking Past Drug Use History: None Reported Medications and Allergies Home Medications Medication Instructions Recorded Confirmed Type Carvedilol [Coreg] 12.5 mg PO BID 04/29/21 04/29/21 History Furosemide [Lasix] 20 mg PO BID 04/29/21 04/29/21 History Nitroglycerin Sl Tabs [Nitrostat] 0.4 mg SUBLINGUAL Q5M PRN 04/29/21 04/29/21 History Sacubitril/Valsartan [Entresto 97 1 tab PO BID 04/29/21 04/29/21 History mg-103 mg Tablet] Allergies Allergy/AdvReac Type Severity Reaction Status Date / Time Penicillins Allergy Unknown Verified 04/29/21 20:47 Physical Exam Vitals: Vital Signs Temp Pulse Resp BP Pulse Ox 05/04/21 07:04 97.5 F L 67 20 102/54 95 05/04/21 02:31 98.2 F 79 15 100/56 94 L 05/03/21 20:46 97.6 F 80 16 128/74 95 05/03/21 13:00 97.9 F 74 18 119/65 96 Intake and Output 05/03/21 05/04/21 05/04/21 22:59 06:59 14:59 Intake Total 600 240 240 Output Total 200 300 Balance 400 -60 240 Intake: Oral 600 240 240 Output: Urine 200 300 Other: Voiding Method Toilet # Voids 1 Weight 59.5 kg Results 05/03/21 07:38 05/04/21 07:42 Cardiac Enzymes 05/03/21 Range/Units 07:38 AST 18 (13-35) U/L CBC 05/03/21 Range/Units 07:38 WBC 4.29 L (4.50-10.00) X 10*3/uL RBC 4.32 (4.10-5.20) X 10*6/uL Hgb 12.4 (12.0-15.0) g/dL Hct 40.7 (37.2-46.3) % Plt Count 156 (140-440) X 10*3/uL Comprehensive Metabolic Panel 05/03/21 05/04/21 Range/Units 07:38 07:42 Sodium 133 L 135 L (135-145) mmol/L Potassium 4.8 4.2 (3.5-5.5) mmol/L Chloride 94 L 101 (96-109) mmol/L Carbon Dioxide 28.1 H 32 H (20.0-27.5) mmol/L BUN 23.9 25 H (9.0-27.0) mg/dL Creatinine 0.9 0.74 (0.6-1.5) mg/dL Glucose 111 H 97 (70-110) mg/dL Calcium 8.9 8.5 (8.7-10.3) mg/dL AST 18 (13-35) U/L ALT 19 (8-44) U/L Alkaline Phosphatase 69 (41-126) U/L Total Protein 6.3 (6.2-8.2) g/dL Albumin 3.9 (3.8-4.9) g/dL Current Medications Generic Name Dose Route Start Last Admin Trade Name Freq PRN Reason Stop Dose Admin Acetaminophen 650 mg 04/29/21 21:27 Acetaminophen Tab 325 Mg Tab PO Q6HR PRN Mild Pain or Fever > 100.5 Albuterol/Ipratropium 3 ml 05/03/21 17:18 Ipratropium-Albuterol 3 Ml Neb INHALATION RT-Q4H PRN Wheezing Aspirin 81 mg 05/04/21 09:00 05/04/21 08:49 Aspirin 81 Mg PO 81 mg DAILY JUANA Administration Atorvastatin Calcium 40 mg 05/03/21 21:00 05/03/21 20:23 Atorvastatin 40 Mg Tab PO Not Given HS JUANA Carvedilol 12.5 mg 04/30/21 09:00 05/04/21 08:49 Carvedilol 12.5 Mg Tab PO 12.5 mg BID JUANA Administration Furosemide 40 mg 05/04/21 09:00 05/04/21 08:48 Furosemide 40 Mg Tab PO 40 mg BID@0900,1600 JUANA Administration Heparin Sodium (Porcine) 5,000 unit 04/30/21 08:00 05/04/21 08:48 Heparin Sodium,Porcine/Pf 5,000 Unit/0.5 Ml Syringe SQ Not Given Q8HR JUANA Ibuprofen 400 mg 04/29/21 21:27 Ibuprofen 400 Mg Tab PO Q6HR PRN Mild Pain or Fever > 100.5 Naloxone HCl 0.2 mg 04/29/21 21:27 Naloxone 0.4 Mg/Ml 1 Ml Vial IV Q2M PRN Opioid Reversal Nitroglycerin 0.4 mg 04/29/21 21:29 Nitroglycerin Sl Tabs 0.4 Mg Tab SUBLINGUAL Q5M PRN Chest Pain Sacubitril/Valsartan 1 each 04/30/21 09:00 05/04/21 08:48 Sacubitril/Valsartan 97 Mg-103 Mg Tablet PO 1 each BID JUANA Administration Spironolactone 25 mg 05/04/21 09:00 05/04/21 08:48 Spironolactone 25 Mg Tab PO 25 mg DAILY JUANA Administration Intake and Output 05/03/21 05/04/21 05/04/21 22:59 06:59 14:59 Intake Total 600 240 240 Output Total 200 300 Balance 400 -60 240 Intake: Oral 600 240 240 Output: Urine 200 300 Other: Voiding Method Toilet # Voids 1 Weight 59.5 kg 05/03/21 07:38 05/04/21 07:42
--- NOTE | 2021-05-04 10:15 | P.PN ---
Subjective This is a 75-year-old lady with history of cardiomyopathy with congestive heart failure, coronary artery disease status post prior angioplasty, chronic nicotine dependence, COPD. She follows with a advanced practice nurse in [place]. We are consulted for congestive heart failure. Patient presented to the hospital on 04/29/2021 with complaints of worsening leg swelling and shortness of breath. On her initial presentation she was found to be in congestive heart failure and had been treated with intravenous diuretics with improvement in her symptoms. An echocardiogram completed which revealed severe LV systolic dysfunction EF 20-25% enlarged right ventricle tricuspid regurgitation and moderate to severe pulmonary hypertension. She states at home she did have some difficulty with taking her medications. Patient is a poor historian, unclear if she has a history of atrial fibrillation. Patient seen and examined at bedside, no acute distress. Her shortness of breath and lower extremity edema has significantly improved. Blood pressure 102/57, heart rate 67, afebrile, saturations 95% on room air. She's currently maintained on aspirin 81 mg daily, atorvastatin 40 mg nightly, carvedilol 12.5 mg twice a day, IV Lasix 40 mg twice a day, Entresto 97 mg103 mg twice a day, spironolactone 25 mg daily. GENERAL: In no acute distress. NECK: Supple without JVD or thyromegaly. LUNGS: Breath sounds clear to auscultation bilaterally. Respiration equal and unlabored. No wheezes, rales or rhonchi. HEART: Regular rate and rhythm Systolic ejection murmur at apex. No rubs or gallops. S1 and S2 heard. EXTREMITIES: Normal range of motion, trace bilateral lower extremity edema. No clubbing or cyanosis. Peripheral pulses intact. ASSESSMENT Acute on chronic heart failure with reduced ejection fraction Coronary artery disease with prior angioplasty Chronic nicotine dependence History of COPD PLAN We will transition to PO Lasix 40mg BID Continue aspirin, statin, Entresto, carvedilol and spironolactone. From a cardiology perspective, patient is stable to be discharged home Recommend close follow up with her Cardiology in [place] in 1 week for further management. Nurse Practitioner note has been reviewed, I agree with a documented findings and plan of care. Patient was seen and examined. Objective - Vital Signs Vital signs: Vital Signs Temp 97.5 F L 05/04/21 07:04 Pulse 67 05/04/21 07:04 Resp 20 05/04/21 07:04 BP 102/54 05/04/21 07:04 Pulse Ox 95 05/04/21 07:04 Intake & Output 05/03/21 05/04/21 05/04/21 18:59 06:59 18:59 Intake Total 600 600 240 Output Total 500 Balance 600 100 240 Weight 59.5 kg Intake: Oral 600 600 240 Output: Urine 500 Other: Voiding Method Toilet # Voids 1 - Labs CBC & Chem 7: 05/03/21 07:38 05/04/21 07:42 Labs: Abnormal Lab Results - Last 24 Hours (Table) 05/03/21 05/03/21 05/04/21 Range/Units 07:38 07:38 07:42 WBC 4.29 L (4.50-10.00) X 10*3/uL MCHC 30.5 L (32.0-37.0) g/dL RDW 16.2 H (11.5-14.5) % MPV 9.3 L (9.5-12.2) fL Sodium 133 L 135 L (135-145) mmol/L Chloride 94 L (96-109) mmol/L Carbon Dioxide 28.1 H 32 H (20.0-27.5) mmol/L BUN 25 H (7-17) mg/dL BUN/Creatinine Ratio 26.56 H (12.00-20.00) Ratio Glucose 111 H (70-110) mg/dL
--- NOTE | 2021-05-04 10:28 | P.DS ---
<Clyde Vasquez - Last Filed: 05/04/21 10:16> Providers Expected date of discharge: 05/04/21 Hospital Course: Discharge Diagnosis: Acute on chronic systolic CHF exacerbation with severely impaired EF of 20-25% Severe tricuspid regurgitation Severe pulmonary hypertension History of CAD status post stenting Hypertension Atrial fibrillation, unclear history and unclear why patient is not on anticoagulation and follows with core assembly supervisor in [place], Dr. Bryanna Yanez MD COPD Hospital Course: Patient is a very pleasant 75-year-old female with an extensive past medical history including CAD status post stenting, hypertension, chronic heart failure, atrial fibrillation not on anticoagulation, and COPD. She presented to the hospital on 04/29/21 with a chief complaint of bilateral lower extremity edema. Troponin was normal findings at less than 0.012 and proBNP was elevated at 14,800. EKG with moderate interference, however showing a sinus rhythm with a right bundle branch block. Chest x-ray consistent with marked interstitial disease, cardiogenic pulmonary edema. Echocardiogram revealing a severely impaired EF of 20-25%, severely enlarged right ventricle with reports of right ventricular volume and pressure overload, severely dilated left atrium, severe tricuspid regurgitation, and moderate to severe pulmonary hypertension. Patient was also noted to have pancytopenia with WBC count of 3.74, hemoglobin 11.8, and platelet count of 137 with no previous labs available for comparison. She was seen and evaluated by cardiology and underwent 5 days IV diuresis. Patient's vitals and labs stable. She has had noted improvement in shortness of breath, dyspnea with exertion, and decreased swelling in her lower extremities. Patient is medically stable for discharge at this time. She is being discharged home on the following cardiac medications including Lasix, Entresto, aspirin, atorvastatin, Aldactone, and Coreg. Patient to follow-up with her PCP in 1-2 days and her core assembly supervisor, Dr. Bryanna Carey MD in one week. Physical exam: Patient seen and fully evaluated at the bedside. She's had slight improvement in her lower extremity edema. She denies having any shortness of breath and reports significantly improved dyspnea with exertion. Patient reports resting well last night and able to sleep with improvement in orthopnea. Lasix has been transitioned from IV to oral and patient cleared by cardiology for discharge home at this time. Patient medically stable showing no signs of acute distress and is stable for discharge. Vital signs reviewed and stable. General: Nontoxic, no distress and appears stated age. Derm: Skin warm and dry, normal coloration for ethnicity. Head: Atraumatic, normocephalic and symmetric. Eyes: EOMs intact, no lid lag, and anicteric sclera Mouth: no lip lesions, mucus membranes moist Cardiovascular: regular rate and rhythm with normal S1S2, systolic murmur, positive posterior tibial pulses bilaterally, and cap refill < 2 seconds. Lungs: Respirations even, regular, and unlabored on room air. Lungs diminished with no rhonchi, no rales, no wheezing, and no accessory muscle usage. Abdominal: soft, nontender to palpation, no guarding, no appreciable organomegaly Ext: ROM intact. No gross muscle atrophy, 2+ pitting edema bilateral lower extremities, no contractures Neuro: Speech clear, face symmetrical and CN II-XII grossly intact with no noted focal neuro deficits Psych: Alert and oriented to person, place, time, and situation. Appropriate and pleasant affect. A total of 45 minutes of time were spent preparing this complex discharge summary. Patient Condition at Discharge: Stable Plan - Discharge Summary Discharge Rx Participant: Yes New Discharge Prescriptions: New Spironolactone [Aldactone] 25 mg PO DAILY 30 Days #30 tab Aspirin 81 mg PO DAILY 30 Days #30 Furosemide [Lasix] 40 mg PO BID@0900,1600 30 Days #60 tab Atorvastatin [Lipitor] 40 mg PO HS 30 Days #30 tab Albuterol Inhaler [Ventolin Hfa Inhaler] 2 puff INHALATION RT-QID 30 Days #8 gm Continue Sacubitril/Valsartan [Entresto 97 mg-103 mg Tablet] 1 tab PO BID Nitroglycerin Sl Tabs [Nitrostat] 0.4 mg SUBLINGUAL Q5M PRN PRN Reason: Chest Pain Carvedilol [Coreg] 12.5 mg PO BID Discontinued Furosemide [Lasix] 20 mg PO BID Discharge Medication List Carvedilol [Coreg] 12.5 mg PO BID 04/29/21 [History] Nitroglycerin Sl Tabs [Nitrostat] 0.4 mg SUBLINGUAL Q5M PRN 04/29/21 [History] Sacubitril/Valsartan [Entresto 97 mg-103 mg Tablet] 1 tab PO BID 04/29/21 [History] Albuterol Inhaler [Ventolin Hfa Inhaler] 2 puff INHALATION RT-QID 30 Days #8 gm 05/04/21 [Rx] Aspirin 81 mg PO DAILY 30 Days #30 05/04/21 [Rx] Atorvastatin [Lipitor] 40 mg PO HS 30 Days #30 tab 05/04/21 [Rx] Furosemide [Lasix] 40 mg PO BID@0900,1600 30 Days #60 tab 05/04/21 [Rx] Spironolactone [Aldactone] 25 mg PO DAILY 30 Days #30 tab 05/04/21 [Rx] Follow up Appointment(s)/Referral(s): None,Stated [REFERRING] - 1-2 days (Pt to follow up with her PCP and core assembly supervisor, Dr. Bryanna Carey MD in [place] in 1 week. ) Patient Instructions/Handouts: Heart Failure (DC) Activity/Diet/Wound Care/Special Instructions: Activity: As tolerated. Take breaks as needed. Diet: Heart healthy and carb consistent diet. Avoid salts, or foods with hidden salts such as canned or boxed foods and frozen dinners. Extra salt makes your heart work harder and traps the fluid in your body for longer. Special Instructions: Weigh yourself every morning after you urinate. If you gain 3 pounds overnight or more than 5 pounds in one week, call your primary physician and core assembly supervisor for guidance on your medications or they may want to see you in their office. Keep a daily log of your weights and be sure to bring with you at follow up visits with your PCP and core assembly supervisor. It is very important to follow up with your core assembly supervisor, Dr. Bryanna Yanez MD. Take all of your medications as directed, especially your water pills. NEVER skip a dose. And remember to keep all of your doctor's appointments and follow- up as needed. Elevate your legs when you are not up moving around to help with circulation and prevent swelling. Compression stockings are also a great way to improve lower extremity circulation and prevent/improve lower extremity edema. Call your primary care provider and core assembly supervisor if you notice any extra swelling in your legs, ankles, feet or abdomen, if you have a new dry cough, if your shortness of breath worsens with activity or at rest, or if you feel more fatigued. Thank you for allowing us to participate in your care, it was truly a pleasure h aving you for our patient!!! Discharge Disposition: HOME SELF-CARE <Sophy Guadalupe - Last Filed: 05/04/21 17:40> Providers Date of admission: 04/30/21 02:22 Attending physician: Laura Duran MD Consults: 05/03/21 14:41 Consult Physician Routine Consulting Provider: Aj Prather Consult Reason/Comments: acute on chronic systolic heart failure exacerbation, EF 20% Do you want consulting provider notified?: Yes Primary care physician: Physician Nonstaff Hospital Course: Clyde Vasquez NP rendered care for this patient independently, reviewed the findings and plan as documented in the note above. I did not physically speak with or examine the patient on this date. ?
== END 2021-05-04 14:55 | disposition home or self-care (01) | DRG 291 ==
LOC: EC 18:08 → 6NMEDSUR 21:33 → OBSVTOIN 04-30 02:22
PROVIDERS: ADMIT Internal Medicine; ATTEND Internal Medicine
DX: I11.0 Hypertensive heart disease with heart failure (principal); I50.23 Acute on chronic systolic (congestive) heart failure; J44.1 Chronic obstructive pulmonary disease with (acute) exacerbation; D61.818 Other pancytopenia; I27.20 Pulmonary hypertension, unspecified; I42.9 Cardiomyopathy, unspecified; I48.91 Unspecified atrial fibrillation; Z20.822 Contact with and (suspected) exposure to COVID-19; I07.1 Rheumatic tricuspid insufficiency; I25.10 Atherosclerotic heart disease of native coronary artery without angina pectoris; I45.10 Unspecified right bundle-branch block; I25.2 Old myocardial infarction; I87.8 Other specified disorders of veins; F17.200 Nicotine dependence, unspecified, uncomplicated; Z79.899 Other long term (current) drug therapy; Z95.5 Presence of coronary angioplasty implant and graft; Z98.891 History of uterine scar from previous surgery; Z88.0 Allergy status to penicillin
CPT/HCPCS: 36415; 71046; 80048; 80053; 83735; 83880; 84484; 85025; 85027; 85610; 85730; 87635; 93005; 93306; 96374; 99285